=== PATIENT | female | born 1985 | race Caucasian/White ===

== ENCOUNTER 2017-06-30 17:05 | Emergency (ER) | payer OTHER ==
[~2017-06-30] VITALS: Ht 172.7 cm; Wt 131.8 kg
[~2017-06-30 17:05] MED LIST: HYDR-2768 PO; LORTA5 PO; PROT40TA PO; ZOFR4TAB3 SL
[2017-06-30 17:23] VITALS: BP 170/74; PULSE 89; RESP 20; TEMP 97.8; O2SAT 99
[2017-06-30] MEDS ORDERED: CYCLOBENZAPRINE HCL 10 MG TAB PO ONE (18:30)
[2017-06-30] MEDS ORDERED: IBUPROFEN 600 MG TAB PO ONE (18:30)
[2017-06-30] MEDS ORDERED: HYDR25TA5 PO (18:43)
[2017-06-30] MEDS ORDERED: PROT40TA PO (18:43)
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
[2017-06-30] MEDS ORDERED: ONDANSETRON ODT 4 MG TAB PO ONE (19:00)
[2017-06-30] MEDS ORDERED: IBUP1TAB7 PO (19:16)
[2017-06-30] MEDS ORDERED: ROBA750T PO (19:16)
== END 2017-06-30 19:24 | disposition home or self-care (01) ==
LOC: NEPK 17:05
DX: S39.012A Strain of muscle, fascia and tendon of lower back, initial encounter (principal); M51.34 Other intervertebral disc degeneration, thoracic region; I10 Essential (primary) hypertension; V49.59XA Passenger injured in collision with other motor vehicles in traffic accident, initial encounter; Y92.410 Unspecified street and highway as the place of occurrence of the external cause
CPT/HCPCS: 72072; 99283